=== PATIENT | female | born 1940 | race Caucasian/White ===

== ENCOUNTER 2016-12-05 13:08 | Day surgery (SDC) | payer BC ==
--- NOTE | ~2016-12-05 | EGD ---
EGD REPORT [facility] [address] [address] NAME: GENOVEVA SAUER : [birth year] STATUS : REG [facility] [place] PAT#: [id number] AGE: 76 ADM/REG DATE : 12/05/16 MR#: [id number] REPORT SERV DATE: 12/05/16 DICTATED BY: CHERRIE PETERSON DATE: 12/05/16 REPORT STATUS : Draft TRANSCRIBED BY: [facility] DATE: 12/05/16 Endoscopy Center Patient Name: Genoveva Sauer Date of : 1940 Attending MD: CHERRIE PETERSON MD Procedure Date No Time: 12/05/2016 Procedure: Upper GI endoscopy Indications: Abnormal CT of the GI tract Referring MD: JOSIE RIGGS Medicines: Monitored Anesthesia Care Complications: No immediate complications. Procedure: Pre-Anesthesia Assessment: - ASA Grade Assessment: III - A patient with severe systemic disease. After obtaining informed consent, the endoscope was passed under direct vision. Throughout the procedure, the patient's blood pressure, pulse, and oxygen saturations were monitored continuously. The GIF H190 [id number] was introduced through the mouth, and advanced to the second part of duodenum. The upper GI endoscopy was accomplished without difficulty. The patient tolerated the procedure well. Findings: The examined esophagus was normal. A single medium-sized papule (nodule) with no stigmata of recent bleeding was found on the anterior wall of the gastric body. This nodule was 15 mm in size. It seemed movable and soft. Biopsies were taken with a cold forceps for histology. The cardia and gastric fundus were normal on retroflexion. The first part of the duodenum was normal. A single 12 mm sessile polyp with was found in the area of the papilla. Biopsies were taken with a cold forceps for histology. Impression: - Normal esophagus. - A single medium-sized papule (nodule) with no stigmata of recent bleeding was found in the stomach. Biopsied. - Normal first part of the duodenum. - A single duodenal polyp. Biopsied. Recommendation: - Patient has a contact number available for emergencies. The signs and symptoms of potential delayed complications were discussed with the patient. Return to normal activities tomorrow. Written discharge instructions were provided to the patient. EGD REPORT [address] [address] NAME: GENOVEVA SAUER : [birth year] STATUS : REG [facility] – [place] PAT#: [id number] AGE: 76 ADM/REG DATE : 12/05/16 MR#: [id number] REPORT SERV DATE: 12/05/16 DICTATED BY: CHERRIE PETERSON DATE: 12/05/16 REPORT STATUS : Draft TRANSCRIBED BY: [employer] DATE: 12/05/16 - Regular diet. - Continue present medications. - Return to GI clinic in 1 week. Procedure Code(s): --- Professional --- 63952, Esophagogastroduodenoscopy, flexible, transoral; with biopsy, single or multiple Diagnosis Code(s): --- Professional --- K31.9, Disease of stomach and duodenum, unspecified K31.7, Polyp of stomach and duodenum R93.3, Abnormal findings on diagnostic imaging of other parts of digestive tract CPT copyright 2013 [employer]. All rights reserved. The codes documented in this report are preliminary and upon spring coiler hand review may be revised to meet current compliance requirements. CHERRIE PETERSON MD 12/05/2016 4:02 PM This report has been signed electronically. Number of Addenda: 0 Note Initiated On: 12/05/2016 3:43 PM Scope Withdrawal Time 0 hours 0 minutes 0 seconds [id number] [address]
[~2016-12-05 13:08] MED LIST: ACCUNE1 INH; ACTONEL35 MG PO; ADVAIR250 INH; ALBUTEROL0.083 % INH; ASAB PO; AUG875 PO; BIAXIN5 PO; BIOTIN5 MG PO; CALCIUM/MAG/ZINC; CALCIUM/MAG/ZINC PO; CALTRAT600 PO; CENTRUM TAB1 TAB PO; CINNAMON PO; COMBIVENT INH; COMBIVENT INHAL15 GM INH; COMBIVENT RESPIM4 GM INH; FISH OIL1200 MG PO; FISH-EPA1000 MG PO; FLONASE NAS; FLORASTOR250 MG PO; GLUCOPHXR PO; GLUCPH PO; GUIAFENESIN PO; ISORDIL20 PO; KLOR-CON 1010 MEQ PO; L20 PO; LEVOTHYROXIN100 MCG PO; LEVOTHYROXIN75 MCG PO; LOP25 PO; MAGOX4 PO; MEVACOR10 MG PO; MIRALAXPKT PO; MULTI-VIT HP PO; NEUR400 PO; NEXIUM20 M1 PO; NEXIUM40 PO; NOLV10 PO; NYS500UDL PO; OXYGEN; PLAVIX PO; PRAVACHOL40 MG PO; PRAVACHOL80 MG PO; PRINZIDE1 TA1 PO; PROTONIX PO; PROVENT20 INH; PROVENTSOL INH; RED YEAS1; RED YEAS1 PO; SPIRIVA INH; SPIRIVA RESPIMAT INH; SYMBICORT 160/41 INH INH; SYN1 PO; TAMOXIFEN10 MG OR; V5 PO; VALIUM10 MG PO; VITAMIN C100 MG PO; VITAMIN D31000 UNIT PO; VITAMIN E PO; VITC500 PO; VITE PO; ZANTAC 150 PO; ZESTORETIC PO; ZYRTEC ALLGY10 MG PO; [UNRECOGNIZED DRUG - OTHER]
[2017-05-22] MEDS ORDERED: COMBIVENT RESPIM4 GM INH (13:31)
[2017-05-30] MEDS ORDERED: PERCOCET 7.5/321 TAB PO (10:26)
== END 2016-12-05 23:59 | disposition home or self-care (01) ==
LOC: DMU 13:08
PROVIDERS: Internal Medicine Gastroenterology
PROC: 0DB68ZX Excision of Stomach, Via Natural or Artificial Opening Endoscopic, Diagnostic (ICD-10-PCS; 2016-12-05)
PROC: 0DB98ZX Excision of Duodenum, Via Natural or Artificial Opening Endoscopic, Diagnostic (ICD-10-PCS; principal; 2016-12-05 14:30)
DX: D13.2 Benign neoplasm of duodenum (principal); I25.10 Atherosclerotic heart disease of native coronary artery without angina pectoris; I10 Essential (primary) hypertension; I71.4 Abdominal aortic aneurysm, without rupture; G47.33 Obstructive sleep apnea (adult) (pediatric); Z99.81 Dependence on supplemental oxygen; J44.9 Chronic obstructive pulmonary disease, unspecified; I73.9 Peripheral vascular disease, unspecified; K21.9 Gastro-esophageal reflux disease without esophagitis; Z85.3 Personal history of malignant neoplasm of breast; Z90.710 Acquired absence of both cervix and uterus; E11.9 Type 2 diabetes mellitus without complications; Z95.1 Presence of aortocoronary bypass graft; Z79.899 Other long term (current) drug therapy; Z88.8 Allergy status to other drugs, medicaments and biological substances; Z79.82 Long term (current) use of aspirin; Z90.49 Acquired absence of other specified parts of digestive tract; Z98.890 Other specified postprocedural states
CPT/HCPCS: 82962; 88305

== ENCOUNTER 2017-01-01 06:54 | Day surgery (SDC) | payer BC ==
--- NOTE | ~2017-01-01 | EGD ---
EGD REPORT [facility] [address] [address] NAME: GENOVEVA SAUER : [birth year] STATUS : REG [facility]#: [id number] AGE: 76 ADM/REG DATE : 01/01/17 MR#: [id number] REPORT SERV DATE: 01/01/17 DICTATED BY: MARGA RUBIO DATE: 01/01/17 REPORT STATUS : Draft [facility]: [facility] DATE: 01/01/17 Endoscopy Center Patient Name: Genoveva Sauer Date of : 1940 Attending MD: MARGA RUBIO, Procedure Date No Time: 01/01/2017 Procedure: Upper EUS Indications: Gastric deformity on endoscopy/Subepithelial tumor versus extrinsic compression, For therapy of benign duodenal tumor Referring MD: CHERRIE BAUNELOS MD Medicines: Monitored Anesthesia Care Complications: No immediate complications. Estimated blood loss: None. Procedure: Pre-Anesthesia Assessment: - ASA Grade Assessment: III - A patient with severe systemic disease. After obtaining informed consent, the endoscope was passed under direct vision. Throughout the procedure, the patient's blood pressure, pulse, and oxygen saturations were monitored continuously. The Endoscope was introduced through the mouth, and advanced to the second part of duodenum. The GIF H190 [id number] was introduced through the mouth, and advanced to the second part of duodenum. Findings: Endoscopic Finding : The examined esophagus was endoscopically normal. A single medium-sized papule (nodule) with no bleeding and no stigmata of recent bleeding was found in the gastric body. Biopsies were taken with a cold forceps for histology. Verification of patient identification for the specimen was done. Estimated blood loss was minimal. The exam of the stomach was otherwise normal. The cardia and gastric fundus were normal on retroflexion. A single 20 mm sessile polyp with no bleeding was found in the second part of the duodenum. The polyp was removed with a hot snare. Resection and retrieval were complete. The exam of the duodenum was otherwise normal. Endosonographic Finding : An oval intramural (subepithelial) lesion was found in the body of the stomach. The lesion was hypoechoic. Sonographically, the lesion appeared to originate from the submucosa (Layer 3). The lesion measured 28 mm (in maximum thickness). The lesion also measured 12 mm in diameter. The outer endosonographic borders were well defined. EGD REPORT [address] [address] NAME: GENOVEVA SAUER : [birth year] STATUS : REG [facility]#: [id number] AGE: 76 ADM/REG DATE : 01/01/17 MR#: [id number] REPORT SERV DATE: 01/01/17 DICTATED BY: MARGA RUBIO DATE: 01/01/17 REPORT STATUS : Draft TRANSCRIBED BY: [facility] DATE: 01/01/17 There was no sign of significant endosonographic abnormality in the common bile duct. There was no sign of significant endosonographic abnormality in the entire pancreas. There was no sign of significant endosonographic abnormality in the examined duodenum. No lymphadenopathy seen. There was no sign of significant endosonographic abnormality in the esophagus. Impression: - Normal esophagus. - A single medium-sized papule (nodule) with no bleeding and no stigmata of recent bleeding was found in the stomach. Biopsied. - A single duodenal polyp. Resected and retrieved. - An intramural (subepithelial) lesion was found in the body of the stomach. The lesion appeared to originate from within the submucosa (Layer 3). - There was no sign of significant pathology in the common bile duct. - There was no sign of significant pathology in the entire pancreas. - There was no sign of significant pathology in the examined duodenum. - There was no sign of significant pathology in the esophagus. Recommendation: - Return to previous diet. - Continue present medications. - Await path results. - Repeat the upper endoscopic ultrasound for surveillance based on pathology results. Procedure Code(s): --- Professional --- 68495, Esophagogastroduodenoscopy, flexible, transoral; with endoscopic ultrasound examination, including the esophagus, stomach, and either the duodenum or a surgically altered stomach where the jejunum is examined distal to the anastomosis 06796, Esophagogastroduodenoscopy, flexible, transoral; with removal of tumor(s), polyp(s), or other lesion(s) by snare technique Diagnosis Code(s): --- Professional --- K31.9, Disease of stomach and duodenum, unspecified K31.7, Polyp of stomach and duodenum K31.89, Other diseases of stomach and duodenum EGD REPORT [facility] [address] [place]. 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 All rights reserved. The codes documented in this report are preliminary and upon credit intern review may be revised to meet current compliance requirements. MARGA RUBIO, 01/01/2017 8:46 AM Number of Addenda: 0 Note Initiated On: 01/01/2017 8:06 AM Scope Withdrawal Time 0 hours 0 minutes 0 seconds [address] [place] [address]
[2017-05-22] MEDS ORDERED: COMBIVENT RESPIM4 GM INH (13:31)
[2017-05-30] MEDS ORDERED: PERCOCET 7.5/321 TAB PO (10:26)
== END 2017-01-01 23:59 | disposition home or self-care (01) ==
LOC: DMU 06:54
PROVIDERS: Internal Medicine Gastroenterology
PROC: 0DB98ZZ Excision of Duodenum, Via Natural or Artificial Opening Endoscopic (ICD-10-PCS; 2017-01-01)
PROC: 0DJ08ZZ Inspection of Upper Intestinal Tract, Via Natural or Artificial Opening Endoscopic (ICD-10-PCS; 2017-01-01)
PROC: BD42ZZZ Ultrasonography of Stomach (ICD-10-PCS; 2017-01-01)
PROC: 0DB68ZX Excision of Stomach, Via Natural or Artificial Opening Endoscopic, Diagnostic (ICD-10-PCS; principal; 2017-01-01 08:30)
DX: D13.2 Benign neoplasm of duodenum (principal); C49.A2 Gastrointestinal stromal tumor of stomach; I25.10 Atherosclerotic heart disease of native coronary artery without angina pectoris; I10 Essential (primary) hypertension; I73.9 Peripheral vascular disease, unspecified; I71.4 Abdominal aortic aneurysm, without rupture; E11.9 Type 2 diabetes mellitus without complications; E03.9 Hypothyroidism, unspecified; E78.00 Pure hypercholesterolemia, unspecified; J44.9 Chronic obstructive pulmonary disease, unspecified; G47.33 Obstructive sleep apnea (adult) (pediatric); M19.90 Unspecified osteoarthritis, unspecified site; K21.9 Gastro-esophageal reflux disease without esophagitis; Z87.891 Personal history of nicotine dependence; Z95.1 Presence of aortocoronary bypass graft; Z88.5 Allergy status to narcotic agent; Z91.09 Other allergy status, other than to drugs and biological substances; Z79.82 Long term (current) use of aspirin; Z79.899 Other long term (current) drug therapy; Z96.1 Presence of intraocular lens; Z98.41 Cataract extraction status, right eye; Z98.42 Cataract extraction status, left eye; Z90.49 Acquired absence of other specified parts of digestive tract; Z90.710 Acquired absence of both cervix and uterus; Z90.11 Acquired absence of right breast and nipple; Z92.21 Personal history of antineoplastic chemotherapy; Z98.890 Other specified postprocedural states
CPT/HCPCS: 82962; 88305; 88341; 88342

== ENCOUNTER 2017-02-14 11:23 | Emergency (ER) | payer BC, SELFPAY ==
[2017-05-22] MEDS ORDERED: COMBIVENT RESPIM4 GM INH (13:31)
[2017-05-30] MEDS ORDERED: PERCOCET 7.5/321 TAB PO (10:26)
== END 2017-02-14 12:55 | disposition home or self-care (01) ==
LOC: ER 11:23
DX: S80.02XA Contusion of left knee, initial encounter (principal); S70.02XA Contusion of left hip, initial encounter; J44.9 Chronic obstructive pulmonary disease, unspecified; I25.10 Atherosclerotic heart disease of native coronary artery without angina pectoris; I10 Essential (primary) hypertension; E11.9 Type 2 diabetes mellitus without complications; G47.30 Sleep apnea, unspecified; Z90.710 Acquired absence of both cervix and uterus; Z90.11 Acquired absence of right breast and nipple; Z95.1 Presence of aortocoronary bypass graft; Z85.3 Personal history of malignant neoplasm of breast; Z88.5 Allergy status to narcotic agent; Z88.6 Allergy status to analgesic agent; Z91.048 Other nonmedicinal substance allergy status; Z79.82 Long term (current) use of aspirin; Z79.899 Other long term (current) drug therapy; I65.21 Occlusion and stenosis of right carotid artery; R10.11 Right upper quadrant pain; I51.89 Other ill-defined heart diseases; X58.XXXA Exposure to other specified factors, initial encounter
CPT/HCPCS: 73502-LT; 78452; 93005; 93017; 93306; 93880; 99284; A9502; J0153

== ENCOUNTER 2017-02-25 16:24 | Inpatient (IN) | payer BC, OTHER ==
--- NOTE | ~2017-02-25 | DS ---
Discharge Summary [facility] [address] [facility] [place]. [address] NAME: SAURABH SAUER : [birth year] STATUS : DIS IN PAT#: [id number] AGE: 77 ADM/REG DATE : 02/25/17 MR#: [id number] REPORT SERV DATE: 03/05/17 DICTATED BY: STEVEN CABA DATE: 03/04/17 REPORT STATUS : Draft TRANSCRIBED BY: MODL DATE: 03/04/17 ADMISSION DATE: 02/25/2017 DISCHARGE DATE: 03/03/2017 REASON FOR ADMISSION: This is a 77-year-old female with a history of COPD that came in with chief complaint of progressive shortness of breath. DISCHARGE DIAGNOSES: 1. Acute exacerbation of chronic obstructive pulmonary disease, O2 dependent. 2. Acute hypoxemic and hypercapnic respiratory failure. 3. Gastrointestinal stromal tumor. 4. Hypertension. 5. Diabetes type 2. 6. Coronary artery disease with a history of CABG. 7. Obstructive sleep apnea with CPAP at night. 8. Hypothyroid. 9. Peripheral arterial disease. 10.History of breast cancer. HOSPITAL COURSE: The patient admitted and started on prednisone and IV Rocephin and azithromycin. Unfortunately, there was a miscommunication on orders for initiating nebulizer treatments, and the patient was not started until the second day on nebulizers; however, after being initiated on nebulizer she did progress nicely each day. The patient does have severe underlying COPD and is O2 dependent at home. She had a pretty bad cough while here at the hospital. It was somewhat productive but while on Mucomyst p.o. but never grossly productive. The patient did, however, recover back to baseline nicely. She was able to perform her baseline ambulation to the restroom and out to the hallway. She does live at home with her son, and she spent extra night on the as he was unavailable to be with her that night that. I did discuss with her as her disease process continues to progress she is getting close to being requiring someone at the house with her most of the time as she has had a history of falls related to becoming faint, short of breath. Son was going to be able to be with her through the weekend, and we went ahead and arranged for home health visits as well. The patient was hypoxemic, requiring 4 L of oxygen on admit but she would be able to be weaned to her baseline at 2 L nasal cannula. DISCHARGE CONDITION: Stable. DISCHARGE MEDICATIONS: 1. Isordil 20 mg p.o. b.i.d. 2. Pravachol 40 mg p.o. daily. 3. Aspirin 81 mg p.o. daily. 4. DuoNeb nebulizer inhalers q.6 hours. 5. Albuterol p.r.n. both inhaler and nebulizers. 6. Levothyroxine 75 mcg p.o. daily. 7. Mag-Ox 400 mg p.o. b.i.d. 8. Lopressor 25 mg p.o. daily. Discharge Summary [address] [address] NAME: SAURABH SAUER : [birth year] STATUS : DIS IN [facility]#: [id number] AGE: 77 ADM/REG DATE : 02/25/17 MR#: [id number] REPORT SERV DATE: 03/05/17 DICTATED BY: STEVEN CABA DATE: 03/04/17 REPORT STATUS : Draft TRANSCRIBED BY: IRIS DATE: 03/04/17 9. Potassium chloride 20 mEq p.o. daily. 10.Protonix 40 mg p.o. daily. 11.Lasix 20 mg p.o. b.i.d. 12.Vitamin D3 2000 units p.o. daily. 13.Vitamin E 400 units p.o. b.i.d. 14.Fish oil 1600 mg p.o. daily. 15.Multivitamin one tablet daily. 16.Tamoxifen 10 mg p.o. daily. 17.Zyrtec 10 mg p.o. daily. 18.Prednisone 40 mg p.o. daily x2 more doses. 19.Prinivil 5 mg p.o. daily. 20.Symbicort 160/4.5 mcg inhaler p.o. inhaled b.i.d. 21.Metformin 500 mg p.o. b.i.d. 22.Mucinex DM 600 mg p.o. b.i.d. 23.Guaifenesin/codeine 100/10 mg per 5 mL 10 mL q.6 hours p.r.n. DISCHARGE PLAN: The patient is discharged home. Follow up with her primary care, Dr. Wadsworth in one to two weeks. The patient requested being transferred to a new medical assistant instructor here with access here to [facility]. We have referred her for followup in three to four weeks with Dr. Holland. The patient also has a history of breast cancer, requested followup with oncologist with access here to [facility]. We have follow requested followup for her with Dr. Damien Marshall in six to eight weeks. DICTATED BY: Steven Caba APN TDR/MODL Steven Caba APN / [id number] CC: Kam Alexander M.D. MD Anjel Squires M.D. Davey B. Daniel, M.D.
--- NOTE | ~2017-02-25 | HP ---
History And Physical [facility] [address] [place]. [address] NAME: SAURABH SAUER : [birth year] STATUS : ADM IN PAT#: [id number] AGE: 77 ADM/REG DATE : 02/25/17 MR#: [id number] REPORT SERV DATE: 02/25/17 DICTATED BY: MEME TRINIDAD DATE: 02/25/17 REPORT STATUS : Draft TRANSCRIBED BY: MODL DATE: 02/25/17 DATE OF ADMISSION: 02/25/2017 IDENTIFYING DATA: A 77-year-old white female, whose PCP is Dr. Meenu Wadsworth; GI, Dr. Peterson and Dr. Armstrong; Vascular, Dr. Sudarshan Landry; Cardiology, Dr. Pennington; Pulmonary, Dr. Rolando Chavis. CHIEF COMPLAINT: Shortness of breath. HISTORY OF PRESENT ILLNESS: This history of present illness is obtained by talking directly with the patient as well as with the ER physician, Dr. Abimbola Thakkar at [facility]. I reviewed also [employer] and [employer] and the records that came from [facility] and of course, talked directly with the patient. The patient states that about a week ago she had increased cough and five days ago, she saw her PCP, got a steroid shot and took amoxicillin. Still did not feel great. On Sunday, two days ago, she went shopping with a friend, got very tired, had to go home earlier than she anticipated. Yesterday, she was more short of breath. She has been coughing more than usual. She has scant sputum production is clear. She has had intermittent fever up to 101.2. She states she normally wears oxygen 4 L with sleep and if she exerts herself, she has been having to wear it more. She had her flu shot July 2016. Her last pneumonia vaccine was two years ago. In the emergency room at [facility] at [facility], she was noted to be very dyspneic, tight wheezes from what I was told and improved, but did still have a lot of wheezes after nebulizer treatments and they felt she needed inpatient care and she requested transfer here. REVIEW OF SYSTEMS: On review of systems, she has had some urinary hesitancy. No dysuria. Slight ankle edema. Some occasional headaches. She fell two weeks ago when she was at this facility as an outpatient for a nuclear stress test and they asked her to walk on the treadmill, and she says she told them that she was not able to walk, but they asked her to anyway. She fell, she states that they took her to the emergency room and did not find any evidence of injury. I found an x-ray dated 02/14/2017, which was left hip and pelvis, which revealed no fractures. She states she has had no sore throat, chest pain, abdominal pain, nausea, vomiting, diarrhea, rectal bleeding, melena, dysuria, or weight loss. She states her weight varies between 130 to 140 pounds. PAST MEDICAL HISTORY: ALLERGIES: SHE STATES SHE IS ALLERGIC TO LORTAB AND TAPE. SHE DENIES ANY HISTORY OF STROKES OR SEIZURES. SHE HAS HAD OBSTRUCTIVE SLEEP APNEA AND SHE WEARS CPAP AT HOME AT NIGHT ALONG WITH HER History And Physical [address] [address] NAME: SAURABH SAUER : [birth year] STATUS : ADM IN [facility]#: [id number] AGE: 77 ADM/REG DATE : 02/25/17 MR#: [id number] REPORT SERV DATE: 02/25/17 DICTATED BY: MEME TRINIDAD DATE: 02/25/17 REPORT STATUS : Draft TRANSCRIBED BY: IRIS DATE: 02/25/17 OXYGEN 4 L. SHE HAD CORONARY BYPASS 1998. SHE HAD NUCLEAR STRESS TEST 02/14/2017, WHICH SHOWED NO ISCHEMIA. ECHOCARDIOGRAM THAT SAME DATE SHOWED LEFT VENTRICULAR EJECTION FRACTION 55% TO 60%, PULMONARY HYPERTENSION OF 50. SHE HAS KNOWN SYSTOLIC HYPERTENSION. SHE HAS DIABETES MELLITUS TYPE 2 FOR ABOUT 10 YEARS AND SHE HAS PERIPHERAL NEUROPATHY. SHE HAD PREVIOUS BREAST CANCER, TREATED WITH MASTECTOMY ON THE RIGHT SIDE AND SHE STILL ON MAINTENANCE TAMOXIFEN. SHE HAS PERIPHERAL ARTERIAL DISEASE. SHE STATES THAT SHE HAS BEEN TOLD SHE HAS CAROTID VASCULAR DISEASE AND ALSO HAD A STENT PLACED IN HER CELIAC BY DR. LANDRY, SEPTEMBER 2013. SHE HAS HAD HYPOTHYROIDISM. SHE HAD A RECENT GASTROESOPHAGEAL STROMAL TUMOR FOUND ON BIOPSY BY DR. ARMSTRONG ON 01/01/2017, AND PRIOR TO THAT DR. 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 HOME MEDICATIONS: Albuterol nebulized p.r.n., vitamin C 1000 mg daily, aspirin 81 mg daily, biotin 5 mg daily, Zyrtec 10 mg daily, vitamin D 2000 units daily, Valium 10 mg at bedtime p.r.n., Lasix 20 mg b.i.d., Combivent Respimat 2 puffs 4 to 6 times a day p.r.n., Isordil 20 mg b.i.d., levothyroxine 75 mcg daily, magnesium oxide 400 mg every evening, metoprolol 25 mg daily, red yeast and multivitamin [id number], fish oil 1600 mg daily, Protonix 40 mg daily, KCl 20 mEq twice a day, Pravachol 40 mg daily, tamoxifen 10 mg daily, vitamin E 400 units twice a day. PAST SURGICAL HISTORY: She has had coronary bypass, right mastectomy, right shoulder surgery, cervical spine and lumbar spine, hysterectomy, appendectomy, cholecystectomy. SOCIAL HISTORY: She is a . She lives alone. She walks without an assistive device. She is a retired cook. She quit smoking a pack per day 10 years ago. She denies any significant alcohol use in her life. FAMILY HISTORY: Mother had a stroke. Dad with heart attack. Siblings with heart disease and a brain injury. DIAGNOSTIC DATA: Labs from [facility]: White count 11.5, hemoglobin 15, platelets 266,000, lactic acid 1.4, sodium 141, potassium 4.1, chloride 101, CO2 is 31, BUN 16, creatinine 0.8, glucose 136, alkaline phosphatase 39. Rest of the CMP there was normal. They did a venous blood gas, pH 7.37, PCO2 58, PO2 37, bicarbonate 33. Urinalysis there was unremarkable. EKG done at their facility today at 1140 reveals sinus rhythm and normal EKG per my interpretation. Chest x-ray, read at their facility revealed normal heart size. No infiltrates. COPD was noted. Carotid ultrasound done at [facility] on 02/14/2017, showed right carotid category 2 with 50% to 69% stenosis, left carotid less than 50% stenosis category 1. PHYSICAL EXAMINATION: VITAL SIGNS: Temp is 96.9, pulse 77, respirations 20, blood pressure of 207/86, O2 sat 96% on 4 L. BMI is 22. GENERAL: A well-developed, older female, who appears mildly short of breath, but in no acute distress. HEENT: Head is atraumatic. She wears glasses. Pupils are equal, round, and reactive to History And Physical [address] [address] NAME: SAURABH SAUER : 44 STATUS : ADM IN PAT#: [id number] AGE: 77 ADM/REG DATE : 02/25/17 MR#: [id number] REPORT SERV DATE: 02/25/17 DICTATED BY: MEME TRINIDAD DATE: 02/25/17 REPORT STATUS : Draft TRANSCRIBED BY: IRIS DATE: 02/25/17 light. Extraocular motions are intact. No scleral icterus noted. Ear, externally unremarkable. No inflammatory changes noted and hearing normal bilaterally. Nose, noninflamed externally. Septum midline. Nares patent. No oxygen in place by nasal cannula. Mouth is moist. Good gag. No redness of the throat, gums, or lips. NECK: Supple. No lymph node or thyroid enlargement. The carotids have good pulses and no bruits. LUNGS: Prolonged expiratory phase, 2+ expiratory wheezes with diminished breath sounds and mildly increased respiratory effort. HEART: Regular rate and rhythm without murmur, gallop, click, or rub. ABDOMEN: Bowel sounds positive. Soft, nondistended, nontender. No masses. No organomegaly. EXTREMITIES: Mild clubbing. No cyanosis. No edema. No actively inflamed skin or joints. NEUROLOGICAL: Alert, oriented, and cooperative with grossly normal mentation and speech as well as motor and cranial nerves 2 through 12. No Babinski. No clonus noted. ASSESSMENT: 1. Acute exacerbation of chronic obstructive pulmonary disease. 2. Acute hypoxic hypercapnic respiratory failure as the ER told me that her O2 sat would drop down to the 70s when they took her off oxygen and when she was walking. 3. Gastrointestinal stromal tumor found December of this year. 4. Uncontrolled hypertension. 5. Obstructive sleep apnea on CPAP at night along with oxygen. 6. Coronary disease with bypass 1998, but myocardial perfusion imaging normal on 02/14/2017. 7. Diabetes mellitus type 2 for 10 years with peripheral neuropathy. 8. Previous right-sided breast cancer, treated with resection and tamoxifen. 9. Peripheral arterial disease with a celiac stent and moderate carotid disease. 10.Hypothyroidism on replacement. 11.Previous kidney stones. PLAN: The patient is admitted to a cardiac telemetry unit. She is on oxygen. She is getting nebulizer treatments. While blood cultures were done at the outside emergency room, we will check procalcitonin as well as urine strep and Legionella antigen. We will put her on some additional steroids. They reportedly gave her Decadron 10 mg there at the outside emergency room before sending her. BOB/IRIS Meme Trinidad M.D. / [id number] CC: Meme Trinidad M.D. History And Physical [address] [address] NAME: SAURABH SAUER : 44 STATUS : ADM IN [facility]#: [id number] AGE: 77 ADM/REG DATE : 02/25/17 MR#: [id number] REPORT SERV DATE: 02/25/17 DICTATED BY: MEME TRINIDAD DATE: 02/25/17 REPORT STATUS : Draft TRANSCRIBED BY: IRIS DATE: 02/25/17 MD Rolando Squires M.D.
[2017-02-25] MEDS ORDERED: NOLV10 PO (16:58)
[2017-02-25] MEDS ORDERED: ZYRTEC ALLGY10 MG PO (17:00)
[2017-02-25 18:07] LABS: CARBOXYHEMOGLOBIN 0.7 % (0-3); DEVICE NC; HCO3 (ACTUAL BICARBONATE) 29.8 MEQ/L (23-27); HEMOBLOGIN CONTENT 15.5 G/DL (12-16); INSTRUMENT SERIAL # 35151; METHEMOGLOBIN 0.3 % (0-3); O2 CONTENT 20.9 VOL% (18-24); PCO2 (CO2 TENSION) 49 MMHG (35-45); PO2 (O2 TENSION) 90 MMHG (79-93); SAMPLE Arterial
[2017-02-25 19:03] LABS: B NATRIURETIC PEPTIDE (BNP) 106.4 PG/ML (< 100.0)
[2017-02-25 19:06] LABS: TROPONIN I <0.02 NG/ML (<0.05)
[2017-02-25 19:29] LABS: PROCALCITONIN <0.05 ng/mL (<0.5)
[2017-02-26 04:39] LABS: BASOPHILS 0.1 %; BASOPHILS ABSOLUTE 0.01 10/3/uL (0.0-0.16); EOSINOPHILS 0 %; HEMATOCRIT 41.5 % (36.0-48.0); HEMOGLOBIN 13.8 g/dL (12.0-16.0); IMMATURE GRANULOCYTES 0.2 %; IMMATURE GRANULOCYTES ABSOLUTE 0.02 10/3/uL (0.0-0.11); LYMPHOCYTES 15.3 %; LYMPHOCYTES ABSOLUTE 1.57 10/3/uL (0.67-4.30); MEAN CORPUS HGB CONC 33.3 g/dL (32.0-36.0); MEAN CORPUSCULAR HEMOGLOB 30.9 pg (26.0-34.0); MEAN CORPUSCULAR VOLUME 92.8 fL (80-100); MEAN PLATELET VOLUME 9.2 fL (9.2-13.0); MONOCYTES 5.3 %; MONOCYTES ABSOLUTE 0.54 10/3/uL (0.21-1.20); NEUTROPHILS 79.1 %; NEUTROPHILS ABSOLUTE 8.14 10/3/uL (2.02-8.40); RBC DISTRIBUTION WIDTH 13.1 % (12.0-16.0); RED CELL COUNT 4.47 10/6/uL (4.0-5.6)
[2017-02-26 04:42] LABS: MANUAL DIFF NO %; PLATELET COUNT 263 10/3/uL (150-400); WHITE BLOOD CELLS 10.3 10/3/uL (4.5-10.5)
[2017-02-26 04:53] LABS: BUN (BLOOD UREA NITROGEN) 20 MG/DL (6-23); CALCIUM, SERUM 9.3 MG/DL (8.5-10.4); CHLORIDE, SERUM 104 MMOL/L (96-112); CO2 (CARBON DIOXIDE) 29 MMOL/L (24-34); CREATININE 0.83 MG/DL (0.55-1.02); GFR AFRICAN AMERICAN 80 ML/MIN (>=60); GFR NON AFRICAN AMERICAN 69 ML/MIN (>=60); GLUCOSE, SERUM 129 MG/DL (60-99); SODIUM, SERUM 139 MMOL/L (135-148)
[2017-02-26 04:57] LABS: POTASSIUM, SERUM 4.4 MMOL/L (3.5-5.3)
[2017-02-26 08:27] LABS: GLYCOHEMOGLOBIN (HbA1c) 6.3 % (4.7-6.1)
[2017-02-26 10:06] LABS: ASCORBIC ACID (UR NOT ORDER) NEG (NEG); BILIRUBIN, URINE NEGATIVE (NEG); KETONE, URINE NEGATIVE (NEG); LEUKOCYTE ESTERASE(NOT OR NEG (NEG); WBC (NOT ORDERED) (RFLEX) < 1 (0-5)
[2017-02-27 11:39] LABS: BASOPHILS 0.2 %; BASOPHILS ABSOLUTE 0.03 10/3/uL (0.0-0.16); EOSINOPHILS 0.2 %; EOSINOPHILS ABSOLUTE 0.03 10/3/uL (0.0-0.53); HEMATOCRIT 44.5 % (36.0-48.0); HEMOGLOBIN 14.3 g/dL (12.0-16.0); IMMATURE GRANULOCYTES 0.3 %; IMMATURE GRANULOCYTES ABSOLUTE 0.04 10/3/uL (0.0-0.11); LYMPHOCYTES 8.3 %; LYMPHOCYTES ABSOLUTE 1.26 10/3/uL (0.67-4.30); MEAN CORPUS HGB CONC 32.1 g/dL (32.0-36.0); MEAN CORPUSCULAR HEMOGLOB 30.9 pg (26.0-34.0); MEAN PLATELET VOLUME 9.1 fL (9.2-13.0); MONOCYTES 3.6 %; MONOCYTES ABSOLUTE 0.54 10/3/uL (0.21-1.20); NEUTROPHILS 87.4 %; NEUTROPHILS ABSOLUTE 13.19 10/3/uL (2.02-8.40); PLATELET COUNT 276 10/3/uL (150-400); RBC DISTRIBUTION WIDTH 13.4 % (12.0-16.0); RED CELL COUNT 4.63 10/6/uL (4.0-5.6)
[2017-02-27 11:40] LABS: MANUAL DIFF NO %; MEAN CORPUSCULAR VOLUME 96.1 fL (80-100); WHITE BLOOD CELLS 15.1 10/3/uL (4.5-10.5)
[2017-02-27 11:54] LABS: BUN (BLOOD UREA NITROGEN) 24 MG/DL (6-23); CALCIUM, SERUM 9.3 MG/DL (8.5-10.4); CHLORIDE, SERUM 102 MMOL/L (96-112); CO2 (CARBON DIOXIDE) 34 MMOL/L (24-34); CREATININE 1.12 MG/DL (0.55-1.02); GFR AFRICAN AMERICAN 56 ML/MIN (>=60); GFR NON AFRICAN AMERICAN 48 ML/MIN (>=60); GLUCOSE, SERUM 207 MG/DL (60-99); POTASSIUM, SERUM 4.4 MMOL/L (3.5-5.3); SODIUM, SERUM 138 MMOL/L (135-148)
[2017-02-28 05:12] LABS: CALCIUM, SERUM 9.2 MG/DL (8.5-10.4); CHLORIDE, SERUM 102 MMOL/L (96-112); CO2 (CARBON DIOXIDE) 31 MMOL/L (24-34); CREATININE 0.87 MG/DL (0.55-1.02); GFR AFRICAN AMERICAN 76 ML/MIN (>=60); GFR NON AFRICAN AMERICAN 65 ML/MIN (>=60); POTASSIUM, SERUM 3.8 MMOL/L (3.5-5.3); SODIUM, SERUM 140 MMOL/L (135-148)
[2017-02-28 05:15] LABS: BUN (BLOOD UREA NITROGEN) 19 MG/DL (6-23); GLUCOSE, SERUM 106 MG/DL (60-99)
[2017-03-02] MEDS ORDERED: P20 PO (11:29)
[2017-03-02] MEDS ORDERED: SYMBICORT 160/41 INH INH (11:30)
[2017-03-02] MEDS ORDERED: PRIN5 PO (11:30)
[2017-03-02] MEDS ORDERED: GLUCPH PO (11:32)
[2017-03-02] MEDS ORDERED: MUCINEX600 MG PO (11:33)
[2017-03-02] MEDS ORDERED: M-CLEAR WC PO (11:34)
[2017-03-03] MEDS ORDERED: DUONEB INH (10:38)
[2017-05-22] MEDS ORDERED: COMBIVENT RESPIM4 GM INH (13:31)
[2017-05-30] MEDS ORDERED: PERCOCET 7.5/321 TAB PO (10:26)
== END 2017-03-03 13:56 | disposition home health service (06) | DRG 189 ==
LOC: 6NO 16:24
PROVIDERS: Hospitalist; Nurse Practitioner Gerontology
DX: J96.01 Acute respiratory failure with hypoxia (principal); E11.42 Type 2 diabetes mellitus with diabetic polyneuropathy; I27.2 Other secondary pulmonary hypertension; J44.1 Chronic obstructive pulmonary disease with (acute) exacerbation; C49.A0 Gastrointestinal stromal tumor, unspecified site; J96.02 Acute respiratory failure with hypercapnia; Z99.81 Dependence on supplemental oxygen; I25.10 Atherosclerotic heart disease of native coronary artery without angina pectoris; I73.9 Peripheral vascular disease, unspecified; G47.33 Obstructive sleep apnea (adult) (pediatric); E03.9 Hypothyroidism, unspecified; Z87.442 Personal history of urinary calculi; Z85.3 Personal history of malignant neoplasm of breast; Z90.11 Acquired absence of right breast and nipple; Z95.1 Presence of aortocoronary bypass graft; Z79.82 Long term (current) use of aspirin; Z88.5 Allergy status to narcotic agent; Z91.048 Other nonmedicinal substance allergy status; Z90.710 Acquired absence of both cervix and uterus; Z82.3 Family history of stroke
CPT/HCPCS: 36600; 71020; 80048; 81001; 82805; 82962; 83036; 83735; 83880; 84145; 84443; 84484; 85025; 87449; 94640; 94668; A9270-GY; J0456